=== PATIENT | female | born 1995 | race Caucasian/White ===

== ENCOUNTER 2016-08-22 23:36 | Emergency (ER) | payer SELFPAY ==
[~2016-08-22] VITALS: Ht 162.6 cm; Wt 118.0 kg
[~2016-08-22 23:36] MED LIST: DICY20TA10 PO; METO10TA PO; OMEP20TA39 PO; PROT40TA PO; ULTR50TA PO; Z.0.BCPILL PO; ZOFR4TAB3 PO
[2016-08-22 23:39] VITALS: BP 160/93; PULSE 78; RESP 16; TEMP 98.5; O2SAT 99
== END 2016-08-23 00:30 | disposition left against medical advice (07) ==
LOC: NETRI 23:36
DX: T78.40XA Allergy, unspecified, initial encounter (principal)
CPT/HCPCS: 99281